=== PATIENT | male | born 1990 | race Caucasian/White ===

== ENCOUNTER 2019-12-29 10:19 | Emergency (ER) | payer MEDICAID, SELFPAY ==
[~2019-12-29] VITALS: Ht 172.7 cm; Wt 72.7 kg
[2019-12-29] MEDS ORDERED: PROAAER10 INH (10:43)
[2019-12-29 12:17] VITALS: BP 134/79
== END 2019-12-29 12:19 | disposition home or self-care (01) ==
LOC: M ED 10:19
DX: S90.02XA Contusion of left ankle, initial encounter (principal); W17.89XA Other fall from one level to another, initial encounter; Y92.018 Other place in single-family (private) house as the place of occurrence of the external cause; J45.909 Unspecified asthma, uncomplicated; Z88.0 Allergy status to penicillin